=== PATIENT | female | born 1950 | race Caucasian/White ===

== ENCOUNTER 2016-12-18 20:51 | Observation (INO) | payer MEDICARE, OTHER ==
--- NOTE | ~2016-12-18 | HP ---
History And Physical [place] [id number] [facility] [place]. [address] NAME: LIAM VERMA : 50 STATUS : DIS Jeremy PAT#: [id number] AGE: 66 ADM/REG DATE : 12/18/16 MR#: [id number] REPORT SERV DATE: 12/19/16 DICTATED BY: ETELVINA MORILLO DATE: 12/19/16 REPORT STATUS : Draft TRANSCRIBED BY: MODTahira DATE: 12/19/16 DATE OF ADMISSION: 12/18/2016 SALES MARKETING MANAGER: Tim Taylor M.D. CHIEF COMPLAINT: Chest pain, nausea, back pain. HISTORY OF PRESENT ILLNESS: This is a very pleasant, 66-year-old, white female with a history of palpitations for which she sees Dr. Taylor. She does not have a personal history of coronary artery disease or heart failure. She reports that at approximately 2 o'clock yesterday morning, she felt chest pain with upper left back pain as well. She reports it radiated down the left arm and into the left jaw. She reports that the pain did not resolve until she finally fell asleep again at 0430 hours. She reports the pain had progressed throughout the day yesterday and therefore, she decided to eventually present to the emergency department yesterday evening. She reports that she has been sick with a sinus infection and was last seen on Friday by her gold miner blasting. She reports that she currently has a sinus headache, but she denies any fever, cough, or any other symptoms. She denies any flu-like symptoms. She denies any exertional component to her chest pain. She denies any dyspnea. She reports that she only had brief nausea along with chest pain when it first awakened her. She reports that the lightheadedness feeling sounds like it was more sinus related with significant sinus congestion. Currently, she is chest pain free. PAST MEDICAL HISTORY: 1. Palpitations with rare PVCs only. 2. Hypertension. 3. Mild diastolic dysfunction with left atrial enlargement with LVEF of 54% per echocardiogram, 11/24/2015. 4. History of low-risk nuclear stress test 04/14/2009 with a preserved ejection fraction of 60%. 5. Allergic rhinitis. 6. Asthma. 7. Obstructive sleep apnea for which she uses CPAP. 8. GERD. 9. Arthritis. 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 11.Squamous cell cancer removals of her leg and arm. 12.History of panic disorder. PAST SURGICAL HISTORY: 1. Hysterectomy. 2. Right breast biopsy that was negative. 3. Tonsillectomy and adenoidectomy. 4. Pilonidal cyst that has been removed. SOCIAL HISTORY: . She is retired from marketing. She has never smoked, but did have passive smoke exposure as a child and as a young adult. She has had no exposures for at History And Physical [address] [address] NAME: LIAM VERMA : 50 STATUS : DIS Jeremy PAT#: [id number] AGE: 66 ADM/REG DATE : 12/18/16 MR#: [id number] REPORT SERV DATE: 12/19/16 DICTATED BY: ETELVINA MORILLO DATE: 12/19/16 REPORT STATUS : Draft TRANSCRIBED BY: MARKOS DATE: 12/19/16 least 40 years. She denies any alcohol use. She does report caffeine use. She does exercise regularly until this recent sinus infection. She denies any chest pain with exercise. FAMILY HISTORY: Noncontributory for coronary artery disease or cardiovascular events. REVIEW OF SYSTEMS: As above per HPI, all other systems reviewed and negative. ALLERGIES: 1. CEPHALOSPORINS, REACTION ANAPHYLAXIS. 2. DEMEROL, REACTION NAUSEA AND VOMITING. HOME MEDICATIONS: List reviewed and is as follows. 1. Augmentin 875 mg p.o. b.i.d. x15 days, started on 12/11/2016. 2. Omeprazole 40 mg p.o. twice per day. 3. Estradiol 2 mg p.o. q.48 hours. 4. Zyrtec 10 mg p.o. every morning. 5. Citalopram 20 mg p.o. every morning. 6. Multivitamin with mineral 1 tablet p.o. every morning. 7. BuSpar 7.5 mg p.o. every morning. 8. BuSpar 15 mg p.o. every evening. 9. Singulair 10 mg p.o. every evening. 10.Premarin cream 2 g on Wednesdays and Saturdays. 11.Flovent HFA 110 mcg per inhalation, 2 puffs inhaled twice per day. 12.Albuterol 2 puffs inhaled p.r.n. shortness of breath. 13.Flonase 1 spray both nostrils every morning. 14.Lorazepam 0.5 mg p.o. as needed p.r.n. anxiety. 15.Acetaminophen 8-hour extended release, 1300 mg p.o. twice per day as needed for pain. 16.Colace 100 mg p.o. twice per day as needed for constipation. 17.Aspirin 650 mg p.o. three times per day as needed for chest pain. 18.Artificial Tears 1-2 drops three times daily in both eyes. PHYSICAL EXAMINATION: VITAL SIGNS: Oxygen saturation 96% on room air, weight 70.3 kg, temperature 98.1, pulse 73, blood pressure 142/74 after being increased at 164/74 in the ER, respiratory rate 20. GENERAL: Well developed, well nourished, in no acute distress. HEENT: Anicteric. Normal EOM. Head normocephalic. PERRLA, no xanthelasma. NECK: Supple. No JVD. Carotids normal without bruits. LUNGS: Clear to auscultation bilaterally anterior and posterior. Respirations even and unlabored. CARDIAC: S1, S2 regular rate and rhythm. No murmurs, rubs, or gallops. No chest wall tenderness. ABDOMEN: Normal bowel sounds. Soft and nontender to palpation. No masses or organomegaly. EXTREMITIES: No peripheral edema. DP/PT and radial pulses palpable bilaterally. No clubbing or cyanosis. SKIN: Warm and dry. Normal turgor. No pallor or cyanosis. History And Physical [address] [address] NAME: LIAM VERMA : 50 STATUS : DIS Jeremy PAT#: [id number] AGE: 66 ADM/REG DATE : 12/18/16 MR#: [id number] REPORT SERV DATE: 12/19/16 DICTATED BY: ETELVINA MORILLO DATE: 12/19/16 REPORT STATUS : Draft TRANSCRIBED BY: MARKOS DATE: 12/19/16 MUSCULOSKELETAL: Moving all extremities x4. Normal muscle strength. NEURO/PSYCH: Alert and oriented with appropriate affect. LABORATORY DATA: BMP: Sodium 143, potassium 3.8, creatinine 0.61, glucose 91, calcium 9.5, magnesium 2.3. CBC: White blood cell count 7.6, hemoglobin 12.8, hematocrit 38.7, platelets 299, troponin less than 0.02 x2. STUDIES: 1. Chest x-ray, no acute processes. 2. EKG personally interpreted x2. Normal sinus rhythm with nonspecific ST changes in 1st and 2nd is normal sinus rhythm with no ischemia. 3. Telemetry, sinus rhythm. 4. Nuclear stress test that was performed today, this was considered to be an overall low risk test with reproduction of symptoms, but no EKG changes or ischemia on imaging. No ischemia again on imaging. Postexercise LVEF greater than 60%. 5. Telemetry, sinus rhythm. ASSESSMENT/PLAN: 1. Precordial chest pain. Two negative troponins. EKG with nonspecific ST changes. Cardiac risk factors include age, elevated blood pressure/hypertension history. We proceeded with a nuclear stress test to risk stratify. As previously stated, it was low risk with no ischemia with a preserved ejection fraction. Therefore, RN is to discharge the patient home with followup appointments ordered with a primary care provider in one week and with Dr. Taylor in three to four weeks. 2. Elevated blood pressure. This is untreated. Per office note, the patient has a history of high blood pressure that is being diet-managed. I advised her to check her blood pressure daily, record, and bring in to primary care provider appointment. We also did discuss reducing her risk factors by low-sodium diet and exercise program. She voiced understanding of the plan. 3. Obstructive sleep apnea, on CPAP. This is noted. 4. Acute sinusitis. She is currently being treated with antibiotics. She is to continue the medication and follow up with primary care provider and gold miner blasting as needed. 5. Gastroesophageal reflux disease. This is noted. 6. Arthritis. This is noted. Primary care per provider followup is recommended. 7. The patient will be discharged to home at this time as her stress test was low risk. KL/MODL Etelvina Morillo NP / [phone] CC: Luz Maria Hadley, MSN, ARMORED SERVICE TECHNICIAN-BC History And Physical [address] [place]. [address] NAME: LIAM VERMA : 50 STATUS : DIS Jeremy PAT#: [id number] AGE: 66 ADM/REG DATE : 12/18/16 MR#: [id number] REPORT SERV DATE: 12/19/16 DICTATED BY: ETELVINA MORILLO DATE: 12/19/16 REPORT STATUS : Draft TRANSCRIBED BY: MODTahira DATE: 12/19/16 Allan Mattson M.D.
[~2016-12-18 20:51] MED LIST: ASTELIN NAS; BUSPAR15 M1 PO; CELEXA40 MG PO; ESTRACE1 MG PO; FLONASE NAS; FLOVENT110 INH; NEUR100 PO; PRILOSEC40 MG PO; SINGULAIR1 PO; T PO; VENTOLIN HFA INH; ZYRTEC ALLGY10 MG PO
[2016-12-19 00:36] LABS: BASOPHILS 0.3 %; BASOPHILS ABSOLUTE 0.02 10/3/uL (0.0-0.16); EOSINOPHILS 0.8 %; EOSINOPHILS ABSOLUTE 0.06 10/3/uL (0.0-0.53); ER CBC TAT 0 Hrs 09 Mins; HEMATOCRIT 38.7 % (36.0-48.0); HEMOGLOBIN 12.8 g/dL (12.0-16.0); IMMATURE GRANULOCYTES 0.1 %; IMMATURE GRANULOCYTES ABSOLUTE 0.01 10/3/uL (0.0-0.11); LYMPHOCYTES 43.4 %; LYMPHOCYTES ABSOLUTE 3.29 10/3/uL (0.67-4.30); MEAN CORPUS HGB CONC 33.1 g/dL (32.0-36.0); MEAN CORPUSCULAR HEMOGLOB 28.3 pg (26.0-34.0); MEAN CORPUSCULAR VOLUME 85.6 fL (80-100); MEAN PLATELET VOLUME 10.3 fL (9.2-13.0); MONOCYTES 6.3 %; MONOCYTES ABSOLUTE 0.48 10/3/uL (0.21-1.20); NEUTROPHILS 49.1 %; NEUTROPHILS ABSOLUTE 3.72 10/3/uL (2.02-8.40); PLATELET COUNT 299 10/3/uL (150-400); RBC DISTRIBUTION WIDTH 13.6 % (12.0-16.0); RED CELL COUNT 4.52 10/6/uL (4.0-5.6); WHITE BLOOD CELLS 7.6 10/3/uL (4.5-10.5)
[2016-12-19 00:37] LABS: MANUAL DIFF NO %
[2016-12-19 00:44] LABS: PARTIAL THROMBO TIME 32.1 SEC (22.5-37.2); PROTIME (NOT ORD) 13.1 SEC (12.0-14.5)
[2016-12-19 00:54] LABS: BUN (BLOOD UREA NITROGEN) 19 MG/DL (6-23); CALCIUM, SERUM 9.5 MG/DL (8.5-10.4); CHEST PAIN PROFILE TAT 0 Hrs 27 Mins; CHLORIDE, SERUM 105 MMOL/L (96-112); CO2 (CARBON DIOXIDE) 29 MMOL/L (24-34); CREATININE 0.61 MG/DL (0.55-1.02); GFR AFRICAN AMERICAN 109 ML/MIN (>=60); GFR NON AFRICAN AMERICAN 94 ML/MIN (>=60); GLUCOSE, SERUM 91 MG/DL (60-99); POTASSIUM, SERUM 3.8 MMOL/L (3.5-5.3); SODIUM, SERUM 143 MMOL/L (135-148); TROPONIN I <0.02 NG/ML (<0.05)
[2016-12-19] MEDS ORDERED: AUG875 PO (02:13)
[2016-12-19] MEDS ORDERED: PRILOSEC40 MG PO (02:14)
[2016-12-19] MEDS ORDERED: ESTRADIOL2 MG PO (02:14)
[2016-12-19] MEDS ORDERED: ZYRTEC ALLGY10 MG PO (02:14)
[2016-12-19] MEDS ORDERED: CELEXA20 PO (02:15)
[2016-12-19] MEDS ORDERED: BUSPAR15 M1 PO (02:16)
[2016-12-19] MEDS ORDERED: SINGULAIR1 PO (02:16)
[2016-12-19] MEDS ORDERED: CENTRUM PO (02:16)
[2016-12-19] MEDS ORDERED: BUSPIRONE7.5 MG PO (02:16)
[2016-12-19] MEDS ORDERED: PREMARIN CREAM V (02:17)
[2016-12-19] MEDS ORDERED: FLONASE NAS (02:18)
[2016-12-19] MEDS ORDERED: VENTOLIN HFA INH (02:18)
[2016-12-19] MEDS ORDERED: FLOVENT110 INH (02:18)
[2016-12-19] MEDS ORDERED: ATV.5 PO (02:20)
[2016-12-19] MEDS ORDERED: DSS PO (02:21)
[2016-12-19] MEDS ORDERED: 8 HOUR650 MG PO (02:21)
[2016-12-19] MEDS ORDERED: ASABAYER PO (02:23)
[2016-12-19] MEDS ORDERED: TEARS PLUS OPH (02:23)
== END 2016-12-19 16:29 | disposition home or self-care (01) ==
LOC: ER 20:51 → SSU1 22:00
PROVIDERS: Emergency Medicine
DX: R07.2 Precordial pain (principal); G47.33 Obstructive sleep apnea (adult) (pediatric); K21.9 Gastro-esophageal reflux disease without esophagitis; J01.90 Acute sinusitis, unspecified; M19.90 Unspecified osteoarthritis, unspecified site; J30.9 Allergic rhinitis, unspecified; J45.909 Unspecified asthma, uncomplicated; M51.36 Other intervertebral disc degeneration, lumbar region; Z90.710 Acquired absence of both cervix and uterus; Z90.89 Acquired absence of other organs; Z90.49 Acquired absence of other specified parts of digestive tract; Z98.890 Other specified postprocedural states; Z82.49 Family history of ischemic heart disease and other diseases of the circulatory system; Z88.1 Allergy status to other antibiotic agents; Z88.8 Allergy status to other drugs, medicaments and biological substances; Z79.82 Long term (current) use of aspirin; Z79.899 Other long term (current) drug therapy
CPT/HCPCS: 71010; 78452; 80048; 83735; 84484; 85025; 85610; 85730; 93005; 93017; 96374; 96376; 99285; A9270-GY; A9502; G0378; J2405